=== PATIENT | female | born 1935 | race Caucasian/White ===

== ENCOUNTER 2018-11-22 15:58 | Inpatient (IN) | payer MEDICARE, BC ==
[2018-11-22] MEDS ORDERED: Albuterol Nebulizer 2.5mg/3mL HHN PRN (17:29)
[2018-11-22 17:39] VITALS: BP 131/78
[2018-11-22 17:48] LABS: BASOPHILE ABSOLUTE 0.2 Th/cumm (0-0.2); EOSINOPHILE ABSOLUTE 0.1 Th/cmm (0.1-0.4); HEMATOCRIT 35.6 % (41.0-60); HEMOGLOBIN 11.2 gm/dL (12-16); MEAN CELL VOLUME 84.5 fl (81-100); MEAN CORPUSCULAR HEMOGLOBIN 26.6 pg (27.0-31.0); MEAN CORPUSCULAR HGB CONC 31.4 pg (28.0-36.0); MEAN PLATELET VOLUME 8.3 fl; MONOCYTE ABSOLUTE 1.1 Th/cmm (0.3-1.0); NEUTROPHILE ABSOLUTE 2.9 Th/cmm (1.8-8.0); PLATELET COUNT 195 Th/cmm (150-400); RED BLOOD COUNT 4.21 Mil/cmm (3.80-5.20); RED CELL DISTRIBUTION WIDTH 17.7 % (11.5-20.0); WHITE BLOOD COUNT 5.3 Th/cmm (4.8-10.8)
[2018-11-22 17:58] LABS: % BASOPHILS 2.9 % (0.0-2.0); % EOSINOPHILS 2.1 % (0.0-5.0); % LYMPHOCYTES 18.2 % (20.0-50.0); % NEUTROPHILS 56.8 % (40.0-80.0)
[2018-11-22 18:03] LABS: ALB/GLOB RATIO 1.1 (1.0-1.8); ALBUMIN 3.3 gm/dL (3.7-5.3); ALKALINE PHOSPHATASE 45 U/L (34-104); ANION GAP 14.6 (7.0-16.0); BUN - UREA NITROGEN 49 mg/dL (7-25); CALCIUM SERUM 9.1 mg/dL (8.6-10.3); CARBON DIOXIDE 24.4 mEq/L (21.0-31.0); CHLORIDE 108 mEq/L (98-107); CREATININE - SERUM 1.5 mg/dL (0.6-1.2); GLUCOSE 147 mg/dL (70-105); SGOT 25 U/L (13-39); SGPT/ALT 15 U/L (7-52); SODIUM SERUM 143 mEq/L (136-145); TOTAL PROTEIN,SERUM 6.2 gm/dL (6.0-8.3)
[2018-11-23] MEDS: Acetaminophen 500 MG TAB PO PRN ×2 (02:29→20:55)
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
[2018-11-23 07:23] LABS: ALB/GLOB RATIO 1.1 (1.0-1.8); ALBUMIN 3.1 gm/dL (3.7-5.3); ALKALINE PHOSPHATASE 39 U/L (34-104); ANION GAP 15.1 (7.0-16.0); BILIRUBIN,TOTAL 1.2 mg/dL (0.3-1.0); BUN - UREA NITROGEN 45 mg/dL (7-25); CALCIUM SERUM 8.9 mg/dL (8.6-10.3); CARBON DIOXIDE 24.8 mEq/L (21.0-31.0); CHLORIDE 109 mEq/L (98-107); CHOLESTEROL 72 mg/dL (<200); CREATININE - SERUM 1.4 mg/dL (0.6-1.2); GLUCOSE 101 mg/dL (70-105); HDL -HIGH DENSITY LIPOPROTEIN 32 mg/dL (23-92); POTASSIUM SERUM 3.9 mEq/L (3.5-5.1); SGOT 23 U/L (13-39); SGPT/ALT 13 U/L (7-52); SODIUM SERUM 145 mEq/L (136-145); TOTAL PROTEIN,SERUM 5.9 gm/dL (6.0-8.3); TRIGLYCERIDES 58 mg/dL (<150)
--- NOTE | 2018-11-23 09:17 | Diagnostic Imaging Report ---
Portable chest x-ray HISTORY: Shortness of breath The heart is enlarged. Atherosclerotic calcification seen within the aorta. Cardiac pacemaker lead wires project over the right atrium and right ventricle. No focal pulmonary processes. IMPRESSION: 1. No acute focal pulmonary processes 2. Cardiomegaly with pacemaker placement
[2018-11-23] MEDS: Triamcinolone Acetonide 0.1% Cream 15 gm TP SCH ×2 (10:39→18:06)
[2018-11-23] MEDS: Potassium Chloride 10 mEq ER Tab PO SCH (10:43)
--- NOTE | 2018-11-23 14:57 | History & Physical ---
ADMIT DATE: 11/23/2018 REQUESTING PHYSICIAN: Dr. De La Rosa. REASON FOR CONSULTATION: Psychosis. HISTORY OF PRESENT ILLNESS: This patient is an 83-year-old woman admitted initially to the geropsychiatric unit and the patient is reported to have been having shortness of breath and has been crying constantly and hence the patient has been transferred to the medical unit and is being currently worked up cardiac ross. A psychiatric consultation is called to address the issue of the patient's mood swings. Chart is reviewed. The patient is interviewed. The patient has been placed on the Seroquel, which has been given 25 mg at bedtime for her psychosis and the patient is also on Lexapro 5 mg for the depression. The patient has been able to tolerate the medications. No side effects are noted. During the evaluation, the patient is noted to be resting comfortably. Staff are reporting that the patient has been doing fairly well so far and no major behavioral problems are noted. PAST PSYCHIATRIC HISTORY: Please refer to the above. MENTAL EXAMINATION: The patient is an 83-year-old woman, thin built, superficially cooperative. Eye contact is poor. Mood is depressed. Affect is constricted. The patient has paranoid delusions. Insight and judgment at this time be still impaired. Impulse control seems to be limited. The patient has paranoid delusions, but denies any command hallucinations. No side effects to the medications are noted at this time. 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 PLAN: To continue the patient with the supportive therapy and continue the Seroquel and follow the patient up. [facility]# [id number]
[2018-11-24] MEDS: Acetaminophen 500 MG TAB PO PRN ×2 (03:10→09:01)
[2018-11-24 05:56] LABS: ANION GAP 13.8 (7.0-16.0); BUN - UREA NITROGEN 43 mg/dL (7-25); CALCIUM SERUM 8.8 mg/dL (8.6-10.3); CARBON DIOXIDE 25.1 mEq/L (21.0-31.0); CHLORIDE 110 mEq/L (98-107); CREATININE - SERUM 1.4 mg/dL (0.6-1.2); GLUCOSE 108 mg/dL (70-105); POTASSIUM SERUM 3.9 mEq/L (3.5-5.1); SODIUM SERUM 145 mEq/L (136-145)
--- NOTE | 2018-11-24 08:00 | General Progress Note ---
Subjective - Review of Systems Service Date: 11/24/18 Subjective: Patient is awake, alert, no acute distress. Patient afebrile. Vitals stable. Objective - Results Result Diagrams: 11/22/18 17:40 11/24/18 05:00 Recent Labs: Laboratory Last Values WBC 5.3 Th/cmm (4.8-10.8) 11/22/18 17:40 RBC 4.21 Mil/cmm (3.80-5.20) 11/22/18 17:40 Hgb 11.2 gm/dL (12-16) L 11/22/18 17:40 Hct 35.6 % (41.0-60) L 11/22/18 17:40 MCV 84.5 fl (81-100) 11/22/18 17:40 MCH 26.6 pg (27.0-31.0) L 11/22/18 17:40 MCHC Differential 31.4 pg (28.0-36.0) 11/22/18 17:40 RDW 17.7 % (11.5-20.0) 11/22/18 17:40 Plt Count 195 Th/cmm (150-400) 11/22/18 17:40 MPV 8.3 fl 11/22/18 17:40 Neutrophils % 56.8 % (40.0-80.0) 11/22/18 17:40 Lymphocytes % 18.2 % (20.0-50.0) L 11/22/18 17:40 Monocytes % 20.0 % (2.0-10.0) H 11/22/18 17:40 Eosinophils % 2.1 % (0.0-5.0) 11/22/18 17:40 Basophils % 2.9 % (0.0-2.0) H 11/22/18 17:40 Sodium 145 mEq/L (136-145) 11/24/18 05:00 Potassium 3.9 mEq/L (3.5-5.1) 11/24/18 05:00 Chloride 110 mEq/L (98-107) H 11/24/18 05:00 Carbon Dioxide 25.1 mEq/L (21.0-31.0) 11/24/18 05:00 Anion Gap 13.8 (7.0-16.0) 11/24/18 05:00 BUN 43 mg/dL (7-25) H 11/24/18 05:00 Creatinine 1.4 mg/dL (0.6-1.2) H 11/24/18 05:00 Est GFR ( Amer) TNP 11/24/18 05:00 Est GFR (Non-Af Amer) TNP 11/24/18 05:00 BUN/Creatinine Ratio 30.7 11/24/18 05:00 Glucose 108 mg/dL (70-105) H 11/24/18 05:00 POC Glucose 131 MG/DL (70 - 105) H 11/22/18 16:48 Calcium 8.8 mg/dL (8.6-10.3) 11/24/18 05:00 Total Bilirubin 1.2 mg/dL (0.3-1.0) H 11/23/18 05:58 AST 23 U/L (13-39) 11/23/18 05:58 ALT 13 U/L (7-52) 11/23/18 05:58 Alkaline Phosphatase 39 U/L (34-104) 11/23/18 05:58 Troponin I 0.03 ng/mL (0.01-0.05) 11/22/18 17:40 B-Natriuretic Peptide 906.0 pg/mL (5.0-100.0) H 11/24/18 05:00 Total Protein 5.9 gm/dL (6.0-8.3) L 11/23/18 05:58 Albumin 3.1 gm/dL (3.7-5.3) L 11/23/18 05:58 Globulin 2.8 gm/dL 11/23/18 05:58 Albumin/Globulin Ratio 1.1 (1.0-1.8) 11/23/18 05:58 Triglycerides 58 mg/dL (<150) 11/23/18 05:58 Cholesterol 72 mg/dL (<200) 11/23/18 05:58 LDL Cholesterol Direct 38 mg/dL (75-193) L 11/23/18 05:58 HDL Cholesterol 32 mg/dL (23-92) 11/23/18 05:58 TSH 0.54 uIU/ml (0.34-5.60) 11/23/18 05:58 - Physical Exam Vitals and I&O: Vital Signs Temp 97 F 11/24/18 04:00 Pulse 87 11/24/18 04:00 Resp 18 11/24/18 04:00 BP 101/54 11/24/18 04:00 Pulse Ox 98 11/24/18 04:00 Intake & Output 11/23/18 11/24/18 11/24/18 18:59 06:59 18:59 Intake Total 500 200 Balance 500 200 Weight (lbs) 67.132 kg 67.132 kg Intake: Oral 500 200 Other: # Voids 2 2 # Bowel Movements 0 1 Weight Source Bedscale Bedscale Active Medications: Current Medications Acetaminophen (Tylenol Extra Strength) 500 mg PO Q6H PRN PRN Reason: Pain or Fever >101 Stop: 01/21/19 18:23 Last Admin: 11/24/18 03:10 Dose: 500 mg Albuterol Sulfate (Albuterol 2.5mg/3ml Neb Ud) 2.5 mg HHN Q4H PRN PRN Reason: sob Stop: 01/21/19 17:28 Atenolol (Tenormin) 50 mg PO DAILY [facility] Stop: 01/22/19 08:59 Last Admin: 11/23/18 08:09 Dose: Not Given Furosemide (Lasix) 40 mg PO DAILY [facility] Stop: 01/22/19 08:59 Last Admin: 11/23/18 16:31 Dose: Not Given Heparin Sodium (Porcine) (Heparin) 5,000 units SUBQ Q12HR [facility] Stop: 01/22/19 08:59 Last Admin: 11/23/18 20:55 Dose: 5,000 units Latanoprost (Xalatan 0.005% Oph Soln) 1 drop EACH EYE HS [facility]IT Stop: 01/21/19 20:59 Last Admin: 11/23/18 22:00 Dose: 1 drop Lorazepam (Ativan) 0.5 mg PO Q4HR PRN; Protocol PRN Reason: Agitation Stop: 01/21/19 17:25 Last Admin: 11/24/18 03:26 Dose: 0.5 mg Lorazepam (Ativan) 0.5 mg PO Q4HR PRN; Protocol PRN Reason: Anxiety Stop: 01/21/19 18:23 Last Admin: 11/22/18 20:22 Dose: 0.5 mg Potassium Chloride (Klor-Con) 10 meq PO DAILY [facility] Stop: 01/22/19 08:59 Last Admin: 11/23/18 10:43 Dose: Not Given Quetiapine Fumarate (Seroquel) 25 mg PO HS SUMIT; Protocol Stop: 01/21/19 20:59 Last Admin: 11/23/18 20:55 Dose: 25 mg Timolol Maleate (Timoptic 0.5% Ophth Soln) 1 drop EACH EYE BID [facility] Stop: 01/22/19 08:59 Last Admin: 11/23/18 18:06 Dose: Not Given Triamcinolone Acetonide (Kenalog 0.1%) 1 appl TP BID [facility] Stop: 01/22/19 08:59 Last Admin: 11/23/18 18:06 Dose: Not Given Zolpidem Tartrate (Ambien) 5 mg PO HS PRN PRN Reason: Insomnia Stop: 01/21/19 18:23 Last Admin: 11/22/18 23:45 Dose: 5 mg General: Alert, Oriented x3, No acute distress HEENT: Atraumatic, PERRLA, EOMI Neck: Supple Cardiovascular: Regular rate, Normal S1, Normal S2 Abdomen: Bowel sounds, Soft Extremities: Edema, no Clubbing, no Cyanosis Assessment/Plan - Assessment Assessment: SOB CHF CRF HTN Dementia Psychosis elevated BNP Lower extremity edema - Plan Plan: cardiology consult Lasix PO continue home meds CBC,CMP,TSH tomorrow CXR ECHO pending
--- NOTE | 2018-11-24 08:01 | Diagnostic Imaging Report ---
Bilateral lower extremity Doppler venous ultrasound exam HISTORY: Pain/swelling Sonographic sector images were obtained through the deep venous systems of both legs. Associated Doppler data was obtained. The exam demonstrates patency of the common femoral, superficial femoral, popliteal, and posterior tibial veins bilaterally. Specifically, no thrombus is seen. There are normal compressibility and augmentation responses. IMPRESSION: Negative exam for deep vein thrombophlebitis.
[2018-11-24] MEDS: Triamcinolone Acetonide 0.1% Cream 15 gm TP SCH ×2 (09:19→17:38)
[2018-11-24] MEDS: Potassium Chloride 10 mEq ER Tab PO SCH (12:24)
--- NOTE | 2018-11-25 08:08 | General Progress Note ---
Subjective - Review of Systems Service Date: 11/25/18 Subjective: Patient is awake, alert, no acute distress. Patient afebrile. Vitals stable. on O2 NC Objective - Results Result Diagrams: 11/22/18 17:40 11/24/18 05:00 Recent Labs: Laboratory Last Values WBC 5.3 Th/cmm (4.8-10.8) 11/22/18 17:40 RBC 4.21 Mil/cmm (3.80-5.20) 11/22/18 17:40 Hgb 11.2 gm/dL (12-16) L 11/22/18 17:40 Hct 35.6 % (41.0-60) L 11/22/18 17:40 MCV 84.5 fl (81-100) 11/22/18 17:40 MCH 26.6 pg (27.0-31.0) L 11/22/18 17:40 MCHC Differential 31.4 pg (28.0-36.0) 11/22/18 17:40 RDW 17.7 % (11.5-20.0) 11/22/18 17:40 Plt Count 195 Th/cmm (150-400) 11/22/18 17:40 MPV 8.3 fl 11/22/18 17:40 Neutrophils % 56.8 % (40.0-80.0) 11/22/18 17:40 Lymphocytes % 18.2 % (20.0-50.0) L 11/22/18 17:40 Monocytes % 20.0 % (2.0-10.0) H 11/22/18 17:40 Eosinophils % 2.1 % (0.0-5.0) 11/22/18 17:40 Basophils % 2.9 % (0.0-2.0) H 11/22/18 17:40 Sodium 145 mEq/L (136-145) 11/24/18 05:00 Potassium 3.9 mEq/L (3.5-5.1) 11/24/18 05:00 Chloride 110 mEq/L (98-107) H 11/24/18 05:00 Carbon Dioxide 25.1 mEq/L (21.0-31.0) 11/24/18 05:00 Anion Gap 13.8 (7.0-16.0) 11/24/18 05:00 BUN 43 mg/dL (7-25) H 11/24/18 05:00 Creatinine 1.4 mg/dL (0.6-1.2) H 11/24/18 05:00 Est GFR ( Amer) TNP 11/24/18 05:00 Est GFR (Non-Af Amer) TNP 11/24/18 05:00 BUN/Creatinine Ratio 30.7 11/24/18 05:00 Glucose 108 mg/dL (70-105) H 11/24/18 05:00 POC Glucose 131 MG/DL (70 - 105) H 11/22/18 16:48 Calcium 8.8 mg/dL (8.6-10.3) 11/24/18 05:00 Total Bilirubin 1.2 mg/dL (0.3-1.0) H 11/23/18 05:58 AST 23 U/L (13-39) 11/23/18 05:58 ALT 13 U/L (7-52) 11/23/18 05:58 Alkaline Phosphatase 39 U/L (34-104) 11/23/18 05:58 Troponin I 0.03 ng/mL (0.01-0.05) 11/22/18 17:40 B-Natriuretic Peptide 906.0 pg/mL (5.0-100.0) H 11/24/18 05:00 Total Protein 5.9 gm/dL (6.0-8.3) L 11/23/18 05:58 Albumin 3.1 gm/dL (3.7-5.3) L 11/23/18 05:58 Globulin 2.8 gm/dL 11/23/18 05:58 Albumin/Globulin Ratio 1.1 (1.0-1.8) 11/23/18 05:58 Triglycerides 58 mg/dL (<150) 11/23/18 05:58 Cholesterol 72 mg/dL (<200) 11/23/18 05:58 LDL Cholesterol Direct 38 mg/dL (75-193) L 11/23/18 05:58 HDL Cholesterol 32 mg/dL (23-92) 11/23/18 05:58 TSH 0.54 uIU/ml (0.34-5.60) 11/23/18 05:58 - Physical Exam Vitals and I&O: Vital Signs Temp 98 F 11/25/18 04:00 Pulse 83 11/25/18 05:58 Resp 16 11/25/18 05:58 BP 127/76 11/25/18 04:00 Pulse Ox 97 11/25/18 05:58 Intake & Output 11/24/18 11/25/18 11/25/18 18:59 06:59 18:59 Intake Total 240 Balance 240 Weight (lbs) 73.663 kg Intake: Oral 240 Other: # Voids 2 # Bowel Movements 1 Weight Source Bedscale Active Medications: Current Medications Acetaminophen (Tylenol Extra Strength) 500 mg PO Q6H PRN PRN Reason: Pain or Fever >101 Stop: 01/21/19 18:23 Last Admin: 11/24/18 09:01 Dose: 500 mg Albuterol Sulfate (Albuterol 2.5mg/3ml Neb Ud) 2.5 mg HHN Q4H PRN PRN Reason: sob Stop: 01/21/19 17:28 Atenolol (Tenormin) 50 mg PO DAILY [facility] Stop: 01/22/19 08:59 Last Admin: 11/24/18 09:23 Dose: 50 mg Furosemide (Lasix) 40 mg PO DAILY [facility] Stop: 01/22/19 08:59 Last Admin: 11/24/18 09:00 Dose: Not Given Heparin Sodium (Porcine) (Heparin) 5,000 units SUBQ Q12HR [facility] Stop: 01/22/19 08:59 Last Admin: 11/24/18 20:27 Dose: 5,000 units Latanoprost (Xalatan 0.005% Ophth Soln) 1 drop EACH EYE HS [facility] Stop: 01/21/19 20:59 Last Admin: 11/24/18 20:36 Dose: Not Given Lorazepam (Ativan) 0.5 mg PO Q4HR PRN; Protocol PRN Reason: Agitation Stop: 01/21/19 17:25 Last Admin: 11/24/18 08:54 Dose: 0.5 mg Lorazepam (Ativan) 0.5 mg PO Q4HR PRN; Protocol PRN Reason: Anxiety Stop: 01/21/19 18:23 Last Admin: 11/22/18 20:22 Dose: 0.5 mg Lorazepam (Ativan) 1 mg IVP Q8HR PRN; Protocol PRN Reason: Agitation Stop: 01/23/19 19:17 Last Admin: 11/24/18 23:01 Dose: 1 mg Potassium Chloride (Klor-Con) 10 meq PO DAILY [facility] Stop: 01/22/19 08:59 Last Admin: 11/24/18 12:24 Dose: Not Given Quetiapine Fumarate (Seroquel) 25 mg PO HS SUMIT; Protocol Stop: 01/21/19 20:59 Last Admin: 11/24/18 20:28 Dose: 25 mg Timolol Maleate (Timoptic 0.5% Ophth Soln) 1 drop EACH EYE BID [facility] Stop: 01/22/19 08:59 Last Admin: 11/24/18 17:38 Dose: Not Given Triamcinolone Acetonide (Kenalog 0.1%) 1 appl TP BID [facility] Stop: 01/22/19 08:59 Last Admin: 11/24/18 17:38 Dose: Not Given Zolpidem Tartrate (Ambien) 5 mg PO HS PRN PRN Reason: Insomnia Stop: 01/21/19 18:23 Last Admin: 11/24/18 23:05 Dose: 5 mg General: Alert, Oriented x3, No acute distress HEENT: Atraumatic, PERRLA, EOMI Neck: Supple Cardiovascular: Regular rate, Normal S1, Normal S2 Abdomen: Bowel sounds, Soft Extremities: Edema, no Clubbing, no Cyanosis Assessment/Plan - Assessment Assessment: SOB CHF CRF HTN Dementia Psychosis elevated BNP Lower extremity edema - Plan Plan: cardiology consult Lasix PO continue home meds CBC,CMP,TSH tomorrow CXR ECHO pending
[2018-11-25] MEDS: Triamcinolone Acetonide 0.1% Cream 15 gm TP SCH ×3 (08:23→16:14)
[2018-11-25] MEDS: Potassium Chloride 10 mEq ER Tab PO SCH ×2 (08:26→09:12)
[2018-11-25 08:56] LABS: ALB/GLOB RATIO 1.2 (1.0-1.8); ALBUMIN 3.1 gm/dL (3.7-5.3); ALKALINE PHOSPHATASE 46 U/L (34-104); ANION GAP 13.9 (7.0-16.0); BILIRUBIN,TOTAL 1.3 mg/dL (0.3-1.0); BUN - UREA NITROGEN 39 mg/dL (7-25); CALCIUM SERUM 8.9 mg/dL (8.6-10.3); CARBON DIOXIDE 26.1 mEq/L (21.0-31.0); CHLORIDE 107 mEq/L (98-107); CREATININE - SERUM 1.3 mg/dL (0.6-1.2); GLUCOSE 88 mg/dL (70-105); SGOT 27 U/L (13-39); SGPT/ALT 14 U/L (7-52); SODIUM SERUM 143 mEq/L (136-145); TOTAL PROTEIN,SERUM 5.8 gm/dL (6.0-8.3)
[2018-11-25 12:58] LABS: ALLEN TEST PASS; pH 7.48 (7.35-7.45)
--- NOTE | 2018-11-25 15:05 | Consultation ---
DATE OF CONSULTATION: 11/25/2018 PULMONARY/CRITICAL CARE CONSULTATION NOTE REASON FOR CONSULTATION: Hypoxemia. HISTORY OF PRESENT ILLNESS: This is an 83-year-old female basically was admitted here because of possibly pneumonia and/or congestive heart failure. Subsequently, the patient was admitted and as the patient was found to have elevated BNP and the patient was given appropriate treatment, but as the patient is moaning was hypoxemic. I was asked to see this patient for further care and necessary treatment. Unfortunately, the patient is quite obtunded. I was told the patient was given Ativan p.o. couple of hours back, meaningful detailed history from the patient is not available. PAST MEDICAL HISTORY: History of hypertension, CKD 3, progressive dementia, insomnia as well as possibly psychosis. Other history is very minimal to nil. PHYSICAL EXAMINATION: GENERAL: This is an elderly looking female, barely arousable, no respiratory distress, etc. PHYSICAL EXAMINATION: VITAL SIGNS: Temperature is 97.5, blood pressure 107/65. NECK: Veins not visualized. CHEST: Shows diminished air entry with occasional rales. HEART: Distant, regular, otherwise unremarkable. ABDOMEN: Soft, nontender. EXTREMITIES: Shows poor pulsations with slight trace of peripheral edema. The patient has a significant ecchymotic looks like old and upper extremity has upper anterior wall of the chest. LABORATORY DATA: The patient's recent laboratory studies WBC is 5.3, hemoglobin 11.2 and patient's ABG today on 36% of oxygen, pO2 is 129 and electrolytes are okay with creatinine 3.39, the patient's creatinine 1.9, BUN is 37 with a total bilirubin 138 and BNP is 1880. IMPRESSION: 1. The patient's shortness of breath is multifactorial. 2. Possibly early congestive heart failure. 3. Sedation with suspect underlying sleep apnea syndrome contributory factor. PLANS AND SUGGESTIONS: We will repeat the chest x-ray again today. We will give aggressive respiratory care p.r.n. BiPAP. We will hold sedation for now and we will see how she does the next 24-48 hours and go from there. JOB# [id number]
[2018-11-25] MEDS: Budesonide 0.5 Mg/2 mL Ud HHN SCH (19:09)
[2018-11-25] MEDS: Albuterol/Ipratropium Neb 3 ML AERS HHN SCH (19:09)
--- NOTE | 2018-11-26 00:51 | Progress Notes ---
DATE: 11/24/2018 REFERRING PHYSICIAN: Dr. De La Rosa and Dr. Resendez. SUBJECTIVE: The patient is being followed up by this copy writer. This copy writer initially evaluated the patient on the geropsychiatric unit. The patient was reported to having SOB and crying constantly and was transferred to the medical unit for a cardiac workup. The patient appears to be experiencing mood swings and reports that she is severely depressed. Staff reports the patient has been compliant with her treatment thus far. OBJECTIVE: Mood labile and depressed. Affect labile and tearful. Thought process depressogenic. The patient denied any auditory or visual hallucinations. It is noted there is possible, paranoid ideation. The patient's behavior has been compliant with care. ASSESSMENT AND PLAN: Psychotic disorder, not otherwise specified; dementia with behavioral disturbance. We continued the supportive psychotherapy. We provided reality orientation, differentiation and integration. We provided motivational enhancement for the patient to stay compliant with all aspects of her care and treatment. We provided coping strategies for phase of life issues. This provider will follow up in 2-3 days, contingent upon the patient's continued admission. This provider will consult with Dr. eD La Rosa and Dr. Resendez with respect to the continuity of care for psychology services while on the medical floor. JOB# [id number] ARIELLE
[2018-11-26 06:51] LABS: HEMATOCRIT 34.5 % (41.0-60); HEMOGLOBIN 11.2 gm/dL (12-16); MEAN CELL VOLUME 86.3 fl (81-100); MEAN CORPUSCULAR HGB CONC 32.5 pg (28.0-36.0); MEAN PLATELET VOLUME 8.7 fl; PLATELET COUNT 185 Th/cmm (150-400); RED CELL DISTRIBUTION WIDTH 17.5 % (11.5-20.0); WHITE BLOOD COUNT 6.3 Th/cmm (4.8-10.8)
[2018-11-26 06:57] LABS: INR 1.25 (0.5-1.4); PROTHROMBIN TIME (TEST) 12.9 SECONDS (9.5-11.5)
[2018-11-26 07:09] LABS: ALB/GLOB RATIO 1.1 (1.0-1.8); ALBUMIN 3.2 gm/dL (3.7-5.3); BILIRUBIN,DIRECT 0.6 mg/dL (0.0-0.2); BILIRUBIN,TOTAL 1.4 mg/dL (0.3-1.0)
[2018-11-26 07:10] LABS: BAND NEUTROPHILE 0 % (0-10); BASOPHIL 0 % (0-3); EOSINOPHIL 0 % (0-5); LYMPHOCYTE 13 % (20-50); MONOCYTE 15 % (2-10); NEUTROPHILS 72 % (40-80)
[2018-11-26] MEDS: Budesonide 0.5 Mg/2 mL Ud HHN SCH ×2 (07:14→19:52)
[2018-11-26] MEDS: Albuterol/Ipratropium Neb 3 ML AERS HHN SCH ×3 (07:14→19:40)
--- NOTE | 2018-11-26 08:21 | General Progress Note ---
Subjective - Review of Systems Service Date: 11/26/18 Subjective: Patient is awake, alert, but confused. poor PO intake. Patient afebrile. Vitals stable. on O2 NC Objective - Results Result Diagrams: 11/26/18 05:50 11/25/18 08:22 Recent Labs: Laboratory Last Values WBC 6.3 Th/cmm (4.8-10.8) 11/26/18 05:50 RBC 4.00 Mil/cmm (3.80-5.20) 11/26/18 05:50 Hgb 11.2 gm/dL (12-16) L 11/26/18 05:50 Hct 34.5 % (41.0-60) L 11/26/18 05:50 MCV 86.3 fl (81-100) 11/26/18 05:50 MCH 28.0 pg (27.0-31.0) 11/26/18 05:50 MCHC Differential 32.5 pg (28.0-36.0) 11/26/18 05:50 RDW 17.5 % (11.5-20.0) 11/26/18 05:50 Plt Count 185 Th/cmm (150-400) 11/26/18 05:50 MPV 8.7 fl 11/26/18 05:50 Add Manual Diff YES 11/26/18 05:50 Neutrophils % 56.8 % (40.0-80.0) 11/22/18 17:40 Band Neutrophils % 0 % (0-10) 11/26/18 05:50 Lymphocytes % 18.2 % (20.0-50.0) L 11/22/18 17:40 Monocytes % 20.0 % (2.0-10.0) H 11/22/18 17:40 Eosinophils % 2.1 % (0.0-5.0) 11/22/18 17:40 Basophils % 2.9 % (0.0-2.0) H 11/22/18 17:40 Neutrophils (Manual) 72 % (40-80) 11/26/18 05:50 Lymphocytes 13 % (20-50) L 11/26/18 05:50 Monocytes 15 % (2-10) H 11/26/18 05:50 Eosinophils 0 % (0-5) 11/26/18 05:50 Basophils 0 % (0-3) 11/26/18 05:50 PT 12.9 SECONDS (9.5-11.5) H 11/26/18 05:50 INR 1.25 (0.5-1.4) 11/26/18 05:50 PTT (Actin FS) 30.2 SECONDS (26.0-38.0) 11/26/18 05:50 Specimen Source Arterial 11/25/18 12:35 Sample Site Right Radial 11/25/18 12:35 pH 7.48 (7.35-7.45) H 11/25/18 12:35 pCO2 35.0 mmHg (35.0-45.0) 11/25/18 12:35 pO2 129.0 mmHg (80.0-100.0) H 11/25/18 12:35 HCO3 27.2 mEq/L (20.0-26.0) H 11/25/18 12:35 Base Excess 2.8 mEq/L (-3.0-3.0) 11/25/18 12:35 O2 Saturation 99.0 % (92.0-100.0) 11/25/18 12:35 Pedrito Test PASS 11/25/18 12:35 Inspired O2 36 11/25/18 12:35 Critical Value PW 11/25/18 12:35 Sodium 143 mEq/L (136-145) 11/25/18 08:22 Potassium 4.0 mEq/L (3.5-5.1) 11/25/18 08:22 Chloride 107 mEq/L (98-107) 11/25/18 08:22 Carbon Dioxide 26.1 mEq/L (21.0-31.0) 11/25/18 08:22 Anion Gap 13.9 (7.0-16.0) 11/25/18 08:22 BUN 39 mg/dL (7-25) H 11/25/18 08:22 Creatinine 1.3 mg/dL (0.6-1.2) H 11/25/18 08:22 Est GFR ( Amer) TNP 11/25/18 08:22 Est GFR (Non-Af Amer) TNP 11/25/18 08:22 BUN/Creatinine Ratio 30.0 11/25/18 08:22 Glucose 88 mg/dL (70-105) 11/25/18 08:22 POC Glucose 131 MG/DL (70 - 105) H 11/22/18 16:48 Calcium 8.9 mg/dL (8.6-10.3) 11/25/18 08:22 Total Bilirubin 1.4 mg/dL (0.3-1.0) H 11/26/18 05:50 Direct Bilirubin 0.60 mg/dL (0.0-0.2) H 11/26/18 05:50 AST 29 U/L (13-39) 11/26/18 05:50 ALT 15 U/L (7-52) 11/26/18 05:50 Alkaline Phosphatase 46 U/L (34-104) 11/26/18 05:50 Troponin I 0.03 ng/mL (0.01-0.05) 11/22/18 17:40 B-Natriuretic Peptide 1880.0 pg/mL (5.0-100.0) H 11/25/18 08:22 Total Protein 6.0 gm/dL (6.0-8.3) 11/26/18 05:50 Albumin 3.2 gm/dL (3.7-5.3) L 11/26/18 05:50 Globulin 2.8 gm/dL 11/26/18 05:50 Albumin/Globulin Ratio 1.1 (1.0-1.8) 11/26/18 05:50 Triglycerides 58 mg/dL (<150) 11/23/18 05:58 Cholesterol 72 mg/dL (<200) 11/23/18 05:58 LDL Cholesterol Direct 38 mg/dL (75-193) L 11/23/18 05:58 HDL Cholesterol 32 mg/dL (23-92) 11/23/18 05:58 TSH 0.54 uIU/ml (0.34-5.60) 11/23/18 05:58 - Physical Exam Vitals and I&O: Vital Signs Temp 98.8 F 11/26/18 04:00 Pulse 99 11/26/18 07:14 Resp 20 11/26/18 07:14 BP 134/90 11/26/18 04:00 Pulse Ox 97 11/26/18 07:14 Intake & Output 11/25/18 11/26/18 11/26/18 18:59 06:59 18:59 Intake Total 100 200 Balance 100 200 Weight (lbs) 72.484 kg 72.121 kg Intake: Oral 100 200 Other: # Voids 2 3 # Bowel Movements 1 Weight Source Bedscale Bedscale Active Medications: Current Medications Acetaminophen (Tylenol Extra Strength) 500 mg PO Q6H PRN PRN Reason: Pain or Fever >101 Stop: 01/21/19 18:23 Last Admin: 11/24/18 09:01 Dose: 500 mg Albuterol Sulfate (Albuterol 2.5mg/3ml Neb Ud) 2.5 mg HHN Q4H PRN PRN Reason: sob Stop: 01/21/19 17:28 Albuterol/Ipratropium (Duoneb Neb) 3 ml HHN [id number] [facility] Stop: 01/24/19 18:59 Last Admin: 11/26/18 07:14 Dose: Not Given Atenolol (Tenormin) 50 mg PO DAILY [facility] Stop: 01/22/19 08:59 Last Admin: 11/25/18 09:11 Dose: Not Given Budesonide (Pulmicort) 0.5 mg HHN BIDRT [facility] Stop: 01/24/19 18:59 Last Admin: 11/26/18 07:14 Dose: Not Given Furosemide (Lasix) 40 mg PO DAILY [facility] Stop: 01/22/19 08:59 Last Admin: 11/25/18 09:11 Dose: Not Given Furosemide (Lasix) 40 mg IVP BID [facility] Stop: 01/24/19 16:59 Last Admin: 11/25/18 16:16 Dose: 40 mg Heparin Sodium (Porcine) (Heparin) 5,000 units SUBQ Q12HR [facility] Stop: 01/22/19 08:59 Last Admin: 11/25/18 21:32 Dose: 5,000 units Latanoprost (Xalatan 0.005% Ophth Soln) 1 drop EACH EYE HS [facility] Stop: 01/21/19 20:59 Last Admin: 11/25/18 20:36 Dose: Not Given Lorazepam (Ativan) 0.5 mg PO Q4HR PRN; Protocol PRN Reason: Agitation Stop: 01/21/19 17:25 Last Admin: 11/25/18 22:09 Dose: 0.5 mg Lorazepam (Ativan) 0.5 mg PO Q4HR PRN; Protocol PRN Reason: Anxiety Stop: 01/21/19 18:23 Last Admin: 11/22/18 20:22 Dose: 0.5 mg Potassium Chloride (Klor-Con) 10 meq PO DAILY [facility] Stop: 01/22/19 08:59 Last Admin: 11/25/18 09:12 Dose: Not Given Quetiapine Fumarate (Seroquel) 25 mg PO HS [facility]; Protocol Stop: 01/21/19 20:59 Last Admin: 11/25/18 20:13 Dose: 25 mg Timolol Maleate (Timoptic 0.5% Oph Soln) 1 drop EACH EYE BID [facility] Stop: 01/22/19 08:59 Last Admin: 11/25/18 16:14 Dose: Not Given Triamcinolone Acetonide (Kenalog 0.1%) 1 appl TP BID [facility] Stop: 01/22/19 08:59 Last Admin: 11/25/18 16:14 Dose: Not Given General: Alert, Oriented x3, No acute distress HEENT: Atraumatic, PERRLA, EOMI Neck: Supple Cardiovascular: Regular rate, Normal S1, Normal S2 Abdomen: Bowel sounds, Soft Extremities: Edema, no Clubbing, no Cyanosis Assessment/Plan - Assessment Assessment: SOB CHF CRF HTN Dementia Psychosis elevated BNP Lower extremity edema poor PO intake - Plan Plan: cardiology consult Lasix PO continue home meds CBC,CMP,TSH tomorrow CXR ECHO pending swallow eval GI consult
--- NOTE | 2018-11-26 08:30 | Diagnostic Imaging Report ---
CHEST X-RAY: AP view INDICATION: Shortness of breath COMPARISON: 11/22/2018 FINDINGS: Left chest wall pacemaker is stable. No focal consolidation or effusions. Chronic lung changes are noted. Cardiomegaly is noted with atherosclerosis. Degenerative changes of the spine are noted. IMPRESSION: Chronic lung changes with no focal consolidation identified. Cardiomegaly and atherosclerotic vascular disease. Stable pacemaker.
[2018-11-26] MEDS: Potassium Chloride 10 mEq ER Tab PO SCH (08:51)
[2018-11-26] MEDS: Triamcinolone Acetonide 0.1% Cream 15 gm TP SCH ×2 (08:52→18:10)
--- NOTE | 2018-11-26 08:58 | Diagnostic Imaging Report ---
CHEST X-RAY: AP view INDICATION: Shortness of breath COMPARISON: 11/25/2018 FINDINGS: Left chest wall pacemaker is stable. Mild increased interstitial lung markings are noted. No focal consolidation or effusions. Cardiomegaly is noted with atherosclerosis. IMPRESSION: Mild increased interstitial lung markings probably chronic. A marginal degree of congestion is considered less likely. Please correlate clinically. No focal consolidation identified. Cardiomegaly and atherosclerotic vascular disease. Pacemaker.
--- NOTE | 2018-11-26 14:15 | General Progress Note ---
Subjective - Review of Systems Service Date: 11/26/18 Subjective: Patient has S shortness of breath and less swelling in the legs Objective - Results Result Diagrams: 11/26/18 05:50 11/25/18 08:22 Recent Labs: Laboratory Last Values WBC 6.3 Th/cmm (4.8-10.8) 11/26/18 05:50 RBC 4.00 Mil/cmm (3.80-5.20) 11/26/18 05:50 Hgb 11.2 gm/dL (12-16) L 11/26/18 05:50 Hct 34.5 % (41.0-60) L 11/26/18 05:50 MCV 86.3 fl (81-100) 11/26/18 05:50 MCH 28.0 pg (27.0-31.0) 11/26/18 05:50 MCHC Differential 32.5 pg (28.0-36.0) 11/26/18 05:50 RDW 17.5 % (11.5-20.0) 11/26/18 05:50 Plt Count 185 Th/cmm (150-400) 11/26/18 05:50 MPV 8.7 fl 11/26/18 05:50 Add Manual Diff YES 11/26/18 05:50 Neutrophils % 56.8 % (40.0-80.0) 11/22/18 17:40 Band Neutrophils % 0 % (0-10) 11/26/18 05:50 Lymphocytes % 18.2 % (20.0-50.0) L 11/22/18 17:40 Monocytes % 20.0 % (2.0-10.0) H 11/22/18 17:40 Eosinophils % 2.1 % (0.0-5.0) 11/22/18 17:40 Basophils % 2.9 % (0.0-2.0) H 11/22/18 17:40 Neutrophils (Manual) 72 % (40-80) 11/26/18 05:50 Lymphocytes 13 % (20-50) L 11/26/18 05:50 Monocytes 15 % (2-10) H 11/26/18 05:50 Eosinophils 0 % (0-5) 11/26/18 05:50 Basophils 0 % (0-3) 11/26/18 05:50 PT 12.9 SECONDS (9.5-11.5) H 11/26/18 05:50 INR 1.25 (0.5-1.4) 11/26/18 05:50 PTT (Actin FS) 30.2 SECONDS (26.0-38.0) 11/26/18 05:50 Specimen Source Arterial 11/25/18 12:35 Sample Site Right Radial 11/25/18 12:35 pH 7.48 (7.35-7.45) H 11/25/18 12:35 pCO2 35.0 mmHg (35.0-45.0) 11/25/18 12:35 pO2 129.0 mmHg (80.0-100.0) H 11/25/18 12:35 HCO3 27.2 mEq/L (20.0-26.0) H 11/25/18 12:35 Base Excess 2.8 mEq/L (-3.0-3.0) 11/25/18 12:35 O2 Saturation 99.0 % (92.0-100.0) 11/25/18 12:35 Pedrito Test PASS 11/25/18 12:35 Inspired O2 36 11/25/18 12:35 Critical Value PW 11/25/18 12:35 Sodium 143 mEq/L (136-145) 11/25/18 08:22 Potassium 4.0 mEq/L (3.5-5.1) 11/25/18 08:22 Chloride 107 mEq/L (98-107) 11/25/18 08:22 Carbon Dioxide 26.1 mEq/L (21.0-31.0) 11/25/18 08:22 Anion Gap 13.9 (7.0-16.0) 11/25/18 08:22 BUN 39 mg/dL (7-25) H 11/25/18 08:22 Creatinine 1.3 mg/dL (0.6-1.2) H 11/25/18 08:22 Est GFR ( Amer) TNP 11/25/18 08:22 Est GFR (Non-Af Amer) TNP 11/25/18 08:22 BUN/Creatinine Ratio 30.0 11/25/18 08:22 Glucose 88 mg/dL (70-105) 11/25/18 08:22 POC Glucose 131 MG/DL (70 - 105) H 11/22/18 16:48 Calcium 8.9 mg/dL (8.6-10.3) 11/25/18 08:22 Total Bilirubin 1.4 mg/dL (0.3-1.0) H 11/26/18 05:50 Direct Bilirubin 0.60 mg/dL (0.0-0.2) H 11/26/18 05:50 AST 29 U/L (13-39) 11/26/18 05:50 ALT 15 U/L (7-52) 11/26/18 05:50 Alkaline Phosphatase 46 U/L (34-104) 11/26/18 05:50 Troponin I 0.03 ng/mL (0.01-0.05) 11/22/18 17:40 B-Natriuretic Peptide 1880.0 pg/mL (5.0-100.0) H 11/25/18 08:22 Total Protein 6.0 gm/dL (6.0-8.3) 11/26/18 05:50 Albumin 3.2 gm/dL (3.7-5.3) L 11/26/18 05:50 Globulin 2.8 gm/dL 11/26/18 05:50 Albumin/Globulin Ratio 1.1 (1.0-1.8) 11/26/18 05:50 Triglycerides 58 mg/dL (<150) 11/23/18 05:58 Cholesterol 72 mg/dL (<200) 11/23/18 05:58 LDL Cholesterol Direct 38 mg/dL (75-193) L 11/23/18 05:58 HDL Cholesterol 32 mg/dL (23-92) 11/23/18 05:58 TSH 0.54 uIU/ml (0.34-5.60) 11/23/18 05:58 - Physical Exam Vitals and I&O: Vital Signs Temp 97.3 F 11/26/18 11:37 Pulse 65 11/26/18 11:37 Resp 18 11/26/18 11:37 BP 147/85 11/26/18 11:37 Pulse Ox 93 11/26/18 11:37 Intake & Output 11/25/18 11/26/18 11/26/18 18:59 06:59 18:59 Intake Total 100 200 Balance 100 200 Weight (lbs) 72.484 kg 72.121 kg Intake: Oral 100 200 Other: # Voids 2 3 # Bowel Movements 1 Weight Source Bedscale Bedscale Active Medications: Current Medications Acetaminophen (Tylenol Extra Strength) 500 mg PO Q6H PRN PRN Reason: Pain or Fever >101 Stop: 01/21/19 18:23 Last Admin: 11/24/18 09:01 Dose: 500 mg Albuterol Sulfate (Albuterol 2.5mg/3ml Neb Ud) 2.5 mg HHN Q4H PRN PRN Reason: sob Stop: 01/21/19 17:28 Albuterol/Ipratropium (Duoneb Neb) 3 ml HHN [id number] [facility] Stop: 01/24/19 18:59 Last Admin: 11/26/18 07:14 Dose: Not Given Atenolol (Tenormin) 50 mg PO DAILY [facility] Stop: 01/22/19 08:59 Last Admin: 11/26/18 08:51 Dose: Not Given Budesonide (Pulmicort) 0.5 mg HHN BIDRT [facility] Stop: 01/24/19 18:59 Last Admin: 11/26/18 07:14 Dose: Not Given Furosemide (Lasix) 40 mg PO DAILY [facility] Stop: 01/22/19 08:59 Last Admin: 11/26/18 08:51 Dose: Not Given Furosemide (Lasix) 40 mg IVP BID [facility] Stop: 01/24/19 16:59 Last Admin: 11/26/18 08:42 Dose: 40 mg Heparin Sodium (Porcine) (Heparin) 5,000 units SUBQ Q12HR [facility] Stop: 01/22/19 08:59 Last Admin: 11/26/18 08:43 Dose: 5,000 units Latanoprost (Xalatan 0.005% [facility] Sol) 1 drop EACH EYE HS [facility] Stop: 01/21/19 20:59 Last Admin: 11/25/18 20:36 Dose: Not Given Lorazepam (Ativan) 0.5 mg PO Q4HR PRN; Protocol PRN Reason: Agitation Stop: 01/21/19 17:25 Last Admin: 11/25/18 22:09 Dose: 0.5 mg Lorazepam (Ativan) 0.5 mg PO Q4HR PRN; Protocol PRN Reason: Anxiety Stop: 01/21/19 18:23 Last Admin: 11/22/18 20:22 Dose: 0.5 mg Potassium Chloride (Klor-Con) 10 meq PO DAILY [facility] Stop: 01/22/19 08:59 Last Admin: 11/26/18 08:51 Dose: Not Given Quetiapine Fumarate (Seroquel) 25 mg PO HS [facility]; Protocol Stop: 01/21/19 20:59 Last Admin: 11/25/18 20:13 Dose: 25 mg Timolol Maleate (Timoptic 0.5% Ophth Soln) 1 drop EACH EYE BID [facility] Stop: 01/22/19 08:59 Last Admin: 11/26/18 08:52 Dose: Not Given Triamcinolone Acetonide (Kenalog 0.1%) 1 appl TP BID [facility] Stop: 01/22/19 08:59 Last Admin: 11/26/18 08:52 Dose: Not Given General: Alert, Oriented x3, No acute distress (patient has no shortness of breath) HEENT: Atraumatic, PERRLA, EOMI Neck: Supple, JVD (severity 10 cm above the sternal angle) Cardiovascular: Regular rate, Normal S1, Normal S2 Lungs: Other (basilar rales) Abdomen: Bowel sounds, Soft Extremities: Edema, Other (mild pedal edema), no Clubbing, no Cyanosis Assessment/Plan - Assessment Assessment: Congestive heart failure systolic dysfunction and acute Cardiomyopathy Hypertension Secondary stage II Dementia Psychotic disorder - Plan Plan: Visit to continue Lasix 40 mg IV twice a day continue same management Nutritional Asmnt/Malnutr-PDOC - Dietary Evaluation Malnutrition Findings (Please click <Entered> for more info): Nutritional Asmnt/Malnutrition Start: 11/26/18 13: 02 Text: Status: Active Freq: Protocol: Document 11/26/18 13:02 [email or web address] (Rec: 11/26/18 13:07 [email or web address]) Nutritional Asmnt/Malnutrition Patient General Information Nutritional Screening Moderate Risk Diagnosis SOB & lower extremity swelling Pertinent Medical Hx/Surgical Hx CKD 3, HTN, dementia, insomnia , psychosis Subjective Information Pt was seen talking to herself at time of visit. PO intake is 0-25% per EMR. Per recent nurse note, pt is refusing to eat lunch, RN attempted to feed pt and was unsuccessful. Current Diet Order/ Nutrition Support cardiac Pertinent Medications lasix, heparin, KCl, seroquel Pertinent Labs 1/16 alb 3.2 11/25 BUN 39, cr 1.3, alb 3.1 11/24 BUN 43, cr 1.4 Nutritional Hx/Data Height 1.52 m Height (Calculated Centimeters) 152.4 Current Weight (lbs) 72.121 kg Weight (Calculated Kilograms) 72.1 Weight (Calculated Grams) 85322.2 [place] Body Weight 100 Body Mass Index (BMI) 31.0 Weight Status Obese GI Symptoms GI Symptoms None Last BM 11/26 Difficult in: None Skin Integrity/Comment: rash/bruise to buttocks, thighs, leg, chest, back gabriel 14 Current %PO Negligible < 25% Estimated Nutritional Goals BEE in Kcals: Adj wt of IBW Calories/Kcals/Kg 25-30 Kcals Calculated 1776-1061 Protein: Adj wt of IBW Protein g/k.8-1 Protein Calculated 41-52
[2018-11-26] MEDS ORDERED: Docusate Sodium 100 mg/10 mL UD PO PRN (16:03)
--- NOTE | 2018-11-26 16:35 | Cardiology ---
11/23/2018 PATIENT OF: Dr. De La Rosa. M-MODE ECHOCARDIOGRAM: Mitral valve, anterior leaflet of mitral valve shows decreased excursion, EF velocity. Posterior leaflet of the mitral valve shows decreased excursion. Left ventricle shows normal thickness, decreased excursion. Interventricular septum showed normal thickness, decreased excursion, ejection fraction 47%. Left atrium enlarged 4.2 cm. Aortic root shows normal dimension, normal excursion of aortic leaflets. CONCLUSION: Enlarged left ventricular cavity with decreased ejection fraction, left atrial enlargement, ejection fraction 47%. 2D ECHO: Long axis view shows enlarged left ventricular cavity with decreased ejection fraction. Left atrium enlarged. Aortic root shows normal dimension, normal excursion of aortic leaflets. Short axis view of mitral valve normal. Short axis view of aortic valve normal. Apical four chamber view shows enlarged left ventricular cavity with decreased ejection fraction, left atrial enlargement. Right ventricular cavity enlarged, right atrial enlargement. Right ventricle normal. CONCLUSION: Left atrial enlargement, right atrial enlargement, ejection fraction 47%. Doppler study shows moderate mitral regurgitation, moderate to severe tricuspid regurgitation, right ventricular systolic pressure 52 mmHg with moderate pulmonary hypertension. JOB# [id number]
[2018-11-26] MEDS ORDERED: Docusate Sodium 100 mg/10 mL UD PO SCH (17:00)
[2018-11-26] MEDS: Acetaminophen 500 MG TAB PO PRN (21:05)
--- NOTE | 2018-11-26 22:39 | Consultation ---
DATE OF CONSULTATION: 11/26/2018 INPATIENT GASTROINTESTINAL CONSULTATION REFERRING PHYSICIAN: Dr. Gen Hall. REASON FOR CONSULTATION: Dysphagia. HISTORY OF PRESENT ILLNESS: An 83-year-old female brought in because of pneumonia, congestive heart failure. The patient is not a good historian. She apparently has not been eating very well and we are asked to see her for the possibility of a feeding tube placement. There are no reports by staff of any GI bleeding or abdominal pain. No reports of any nausea, vomiting per staff. Again, the patient is not a good historian. PAST MEDICAL HISTORY: Hypertension, chronic kidney disease, dementia, and psychosis. PAST SURGICAL HISTORY: None to add recently. FAMILY HISTORY: Noncontributory. SOCIAL HISTORY: No tobacco, alcohol or IV drug usage. ALLERGIES: None. CURRENT MEDICATIONS: Tylenol, Tenormin, Pulmicort, Lasix, heparin, Ativan, Seroquel, Kenalog. REVIEW OF SYSTEMS: Unobtainable. PHYSICAL EXAMINATION: VITAL SIGNS: Temperature 97.3, breathing 18, pulse of 93, blood pressure 147/85, satting 93%. GENERAL: In no apparent distress, thin. EYES: Anicteric. Normal conjunctivae. HEENT: Normocephalic, atraumatic. Moist mucous membranes. NECK: Soft, supple. CHEST: Coarse breath sounds. CARDIOVASCULAR: Regular rate and rhythm. ABDOMEN: Soft, nontender, nondistended. SKIN: Warm and dry. EXTREMITIES: Reveal no cyanosis. PSYCHOLOGICAL: Confused. LABORATORY DATA: Show a white count of 6.3, hemoglobin 11.2, platelets of 185. INR is 1.25. IMPRESSION: An 83-year-old female with multiple medical problems, apparently not eating very well, consideration would be for feeding tube placement. If this is needed by the patient, first thing to do would be to do a swallow evaluation; if she can swallow, fine, then would encourage the oral route. On the other hand, if she fails, then would consider PEG. This would also require consent. PLAN: 1. Swallow evaluation. 2. Additional ____ to follow. 3. Defer other management to the primary team. Thank you for allowing me to participate. Please call me if any questions. JOB# [id number]
[2018-11-27] MEDS: Albuterol/Ipratropium Neb 3 ML AERS HHN SCH ×2 (07:15→13:21)
[2018-11-27] MEDS: Budesonide 0.5 Mg/2 mL Ud HHN SCH (07:16)
[2018-11-27 07:28] LABS: ALB/GLOB RATIO 1.2 (1.0-1.8); ALBUMIN 2.9 gm/dL (3.7-5.3); ALKALINE PHOSPHATASE 39 U/L (34-104); ANION GAP 14.6 (7.0-16.0); BILIRUBIN,TOTAL 1.5 mg/dL (0.3-1.0); BUN - UREA NITROGEN 38 mg/dL (7-25); CALCIUM SERUM 8.8 mg/dL (8.6-10.3); CARBON DIOXIDE 26.7 mEq/L (21.0-31.0); CHLORIDE 106 mEq/L (98-107); CREATININE - SERUM 1.5 mg/dL (0.6-1.2); GLUCOSE 104 mg/dL (70-105); POTASSIUM SERUM 3.3 mEq/L (3.5-5.1); SGOT 26 U/L (13-39); SGPT/ALT 12 U/L (7-52); SODIUM SERUM 144 mEq/L (136-145); TOTAL PROTEIN,SERUM 5.4 gm/dL (6.0-8.3)
--- NOTE | 2018-11-27 08:20 | General Progress Note ---
Subjective - Review of Systems Service Date: 11/27/18 Subjective: Patient is awake, alert, but confused at times. resting comfortably in bed. Patient afebrile. Vitals stable. on O2 NC Objective - Results Result Diagrams: 11/26/18 05:50 11/27/18 05:40 Recent Labs: Laboratory Last Values WBC 6.3 Th/cmm (4.8-10.8) 11/26/18 05:50 RBC 4.00 Mil/cmm (3.80-5.20) 11/26/18 05:50 Hgb 11.2 gm/dL (12-16) L 11/26/18 05:50 Hct 34.5 % (41.0-60) L 11/26/18 05:50 MCV 86.3 fl (81-100) 11/26/18 05:50 MCH 28.0 pg (27.0-31.0) 11/26/18 05:50 MCHC Differential 32.5 pg (28.0-36.0) 11/26/18 05:50 RDW 17.5 % (11.5-20.0) 11/26/18 05:50 Plt Count 185 Th/cmm (150-400) 11/26/18 05:50 MPV 8.7 fl 11/26/18 05:50 Add Manual Diff YES 11/26/18 05:50 Neutrophils % 56.8 % (40.0-80.0) 11/22/18 17:40 Band Neutrophils % 0 % (0-10) 11/26/18 05:50 Lymphocytes % 18.2 % (20.0-50.0) L 11/22/18 17:40 Monocytes % 20.0 % (2.0-10.0) H 11/22/18 17:40 Eosinophils % 2.1 % (0.0-5.0) 11/22/18 17:40 Basophils % 2.9 % (0.0-2.0) H 11/22/18 17:40 Neutrophils (Manual) 72 % (40-80) 11/26/18 05:50 Lymphocytes 13 % (20-50) L 11/26/18 05:50 Monocytes 15 % (2-10) H 11/26/18 05:50 Eosinophils 0 % (0-5) 11/26/18 05:50 Basophils 0 % (0-3) 11/26/18 05:50 PT 12.9 SECONDS (9.5-11.5) H 11/26/18 05:50 INR 1.25 (0.5-1.4) 11/26/18 05:50 PTT (Actin FS) 30.2 SECONDS (26.0-38.0) 11/26/18 05:50 Specimen Source Arterial 11/25/18 12:35 Sample Site Right Radial 11/25/18 12:35 pH 7.48 (7.35-7.45) H 11/25/18 12:35 pCO2 35.0 mmHg (35.0-45.0) 11/25/18 12:35 pO2 129.0 mmHg (80.0-100.0) H 11/25/18 12:35 HCO3 27.2 mEq/L (20.0-26.0) H 11/25/18 12:35 Base Excess 2.8 mEq/L (-3.0-3.0) 11/25/18 12:35 O2 Saturation 99.0 % (92.0-100.0) 11/25/18 12:35 Pedrito Test PASS 11/25/18 12:35 Inspired O2 36 11/25/18 12:35 Critical Value PW 11/25/18 12:35 Sodium 144 mEq/L (136-145) 11/27/18 05:40 Potassium 3.3 mEq/L (3.5-5.1) L 11/27/18 05:40 Chloride 106 mEq/L (98-107) 11/27/18 05:40 Carbon Dioxide 26.7 mEq/L (21.0-31.0) 11/27/18 05:40 Anion Gap 14.6 (7.0-16.0) 11/27/18 05:40 BUN 38 mg/dL (7-25) H 11/27/18 05:40 Creatinine 1.5 mg/dL (0.6-1.2) H 11/27/18 05:40 Est GFR ( Amer) TNP 11/27/18 05:40 Est GFR (Non-Af Amer) TNP 11/27/18 05:40 BUN/Creatinine Ratio 25.3 11/27/18 05:40 Glucose 104 mg/dL (70-105) 11/27/18 05:40 POC Glucose 131 MG/DL (70 - 105) H 11/22/18 16:48 Calcium 8.8 mg/dL (8.6-10.3) 11/27/18 05:40 Total Bilirubin 1.5 mg/dL (0.3-1.0) H 11/27/18 05:40 Direct Bilirubin 0.60 mg/dL (0.0-0.2) H 11/26/18 05:50 AST 26 U/L (13-39) 11/27/18 05:40 ALT 12 U/L (7-52) 11/27/18 05:40 Alkaline Phosphatase 39 U/L (34-104) 11/27/18 05:40 Troponin I 0.03 ng/mL (0.01-0.05) 11/22/18 17:40 B-Natriuretic Peptide 1320.0 pg/mL (5.0-100.0) H 11/27/18 05:40 Total Protein 5.4 gm/dL (6.0-8.3) L 11/27/18 05:40 Albumin 2.9 gm/dL (3.7-5.3) L 11/27/18 05:40 Globulin 2.5 gm/dL 11/27/18 05:40 Albumin/Globulin Ratio 1.2 (1.0-1.8) 11/27/18 05:40 Triglycerides 58 mg/dL (<150) 11/23/18 05:58 Cholesterol 72 mg/dL (<200) 11/23/18 05:58 LDL Cholesterol Direct 38 mg/dL (75-193) L 11/23/18 05:58 HDL Cholesterol 32 mg/dL (23-92) 11/23/18 05:58 TSH 0.54 uIU/ml (0.34-5.60) 11/23/18 05:58 - Physical Exam Vitals and I&O: Vital Signs Temp 97.7 F 11/27/18 04:00 Pulse 103 11/27/18 07:26 Resp 18 11/27/18 07:26 BP 122/51 11/27/18 04:00 Pulse Ox 99 11/27/18 07:26 Intake & Output 11/26/18 11/27/18 11/27/18 18:59 06:59 18:59 Intake Total 300 Balance 300 Weight (lbs) 72.121 kg Intake: Oral 300 Other: # Voids 3 # Bowel Movements 2 Stool Characteristics Formed Weight Source Bedscale Active Medications: Current Medications Acetaminophen (Tylenol Extra Strength) 500 mg PO Q6H PRN PRN Reason: Pain or Fever >101 Stop: 01/21/19 18:23 Last Admin: 11/26/18 21:05 Dose: 500 mg Albuterol Sulfate (Albuterol 2.5mg/3ml Neb Ud) 2.5 mg HHN Q4H PRN PRN Reason: sob Stop: 01/21/19 17:28 Albuterol/Ipratropium (Duoneb Neb) 3 ml HHN [id number] [facility] Stop: 01/24/19 18:59 Last Admin: 11/27/18 07:15 Dose: 3 ml Atenolol (Tenormin) 50 mg PO DAILY [facility] Stop: 01/22/19 08:59 Last Admin: 11/26/18 08:51 Dose: Not Given Budesonide (Pulmicort) 0.5 mg HHN BIDRT [facility] Stop: 01/24/19 18:59 Last Admin: 11/27/18 07:16 Dose: 0.5 mg Docusate Sodium (Colace) 200 mg PO BID PRN PRN Reason: Constipation Stop: 01/25/19 16:59 Last Admin: 11/26/18 22:56 Dose: 200 mg Furosemide (Lasix) 40 mg PO DAILY [facility] Stop: 01/22/19 08:59 Last Admin: 11/26/18 08:51 Dose: Not Given Furosemide (Lasix) 40 mg IVP BID [facility] Stop: 01/24/19 16:59 Last Admin: 11/26/18 18:11 Dose: 40 mg Heparin Sodium (Porcine) (Heparin) 5,000 units SUBQ Q12HR [facility] Stop: 01/22/19 08:59 Last Admin: 11/26/18 21:05 Dose: 5,000 units Latanoprost (Xalatan 0.005% Ophth Soln) 1 drop EACH EYE HS [facility] Stop: 01/21/19 20:59 Last Admin: 11/26/18 20:50 Dose: Not Given Lorazepam (Ativan) 0.5 mg PO Q4HR PRN; Protocol PRN Reason: Agitation Stop: 03/13/19 17:25 Last Admin: 11/25/18 22:09 Dose: 0.5 mg Lorazepam (Ativan) 0.5 mg PO Q4HR PRN; Protocol PRN Reason: Anxiety Stop: 01/21/19 18:23 Last Admin: 11/22/18 20:22 Dose: 0.5 mg Lorazepam (Ativan) 0.5 mg IVP Q4HR PRN; Protocol PRN Reason: Agitation Stop: 01/25/19 15:09 Potassium Chloride (Klor-Con) 10 meq PO DAILY [facility] Stop: 01/22/19 08:59 Last Admin: 11/26/18 08:51 Dose: Not Given Quetiapine Fumarate (Seroquel) 25 mg PO HS [facility]; Protocol Stop: 01/21/19 20:59 Last Admin: 11/26/18 21:05 Dose: 25 mg Timolol Maleate (Timoptic 0.5% Ophth Soln) 1 drop EACH EYE BID [facility] Stop: 01/22/19 08:59 Last Admin: 11/26/18 18:09 Dose: Not Given Triamcinolone Acetonide (Kenalog 0.1%) 1 appl TP BID [facility] Stop: 01/22/19 08:59 Last Admin: 11/26/18 18:10 Dose: Not Given General: Alert, Oriented x3, No acute distress (patient has no shortness of breath) HEENT: Atraumatic, PERRLA, EOMI Neck: Supple, JVD (severity 10 cm above the sternal angle) Cardiovascular: Regular rate, Normal S1, Normal S2 Lungs: Other (basilar rales) Abdomen: Bowel sounds, Soft Extremities: Edema, Other (mild pedal edema), no Clubbing, no Cyanosis Assessment/Plan - Assessment Assessment: SOB CHF CRF HTN Dementia Psychosis elevated BNP Lower extremity edema poor PO intake on mechanical soft diet constipation hypokalemia - Plan Plan: cardiology consult Lasix PO kcl PO discharge planning continue home med Nutritional Asmnt/Malnutr-PDOC - Dietary Evaluation Malnutrition Findings (Please click <Entered> for more info): Nutritional Asmnt/Malnutrition Start: 11/26/18 13: 02 Text: Status: Complete Freq: Protocol: Document 11/26/18 13:02 [email or web address] (Rec: 11/26/18 13:07 [email or web address]) Nutritional Asmnt/Malnutrition Patient General Information Nutritional Screening Moderate Risk Diagnosis SOB & lower extremity swelling Pertinent Medical Hx/Surgical Hx CKD 3, HTN, CHF, dementia, insomnia, psychosis Subjective Information Pt was seen talking to herself at time of visit. PO intake is 0-25% per EMR. Per nurse note, pt is refusing to eat lunch today, RN attempted to feed pt and was unsuccessful. Swallow eval completed today, speech therapist note recommends downgrading to mechanical soft chopped with thin liquids. Current Diet Order/ Nutrition Support cardiac Pertinent Medications lasix, heparin, KCl, seroquel Pertinent Labs 11/26 alb 3.2 11/25 BUN 39, cr 1.3, alb 3.1, glucose 88 11/24 BUN 43, cr 1.4, glucose 108 Nutritional Hx/Data Height 1.52 m Height (Calculated Centimeters) 152.4 Current Weight (lbs) 72.121 kg Weight (Calculated Kilograms) 72.1 Weight (Calculated Grams) 97073.2 [place] Body Weight 100 Body Mass Index (BMI) 31.0 Weight Status Obese GI Symptoms GI Symptoms None Last BM 11/26 Skin Integrity/Comment: rash/bruise to buttocks, thighs, leg, chest, back gabriel 14 Current %PO Negligible < 25% Estimated Nutritional Goals BEE in Kcals: Adj wt of IBW Calories/Kcals/Kg 25-30 Kcals Calculated 4551-9531 Protein: Adj wt of IBW Protein g/k.8 monitor renal labs Protein Calculated 41 Fluid: ml 9080-1854 (1ml/kcal) Nutritional Problem 1. Problem Problem inadequate energy/protein intake Etiology possible poor appetite and confusion Signs/Symptoms: PO intake 0-25% Malnutrition Alert Is there a minimum of two criteria No selected? Query Text:Check all the applicable criteria. A minimum of two criteria are recommended for diagnosis of either severe or non-severe malnutrition. Malnutrition Related to Morbid Obesity Malnutrition related to morbid obesity No Intervention/Recommendation Comments 1. Continue with cardiac diet and modify texture to mech soft chopped, nurse to assist pt with meals. 2. Add Ensure Enlive BID for extra kcal and protein. MD to consider appetite stimulant if PO intake continue < 50%. 3. Monitor PO intake, wt, labs , and skin integrity. 4. F/U as high risk in 2-3 days Expected Outcomes/Goals Expected Outcomes/Goals 1. PO intake to meet at least 75% of nutritional needs 2. Wt stability, skin to remain intact, labs to approach WNL. Reviewed by Ursula Flor RD
[2018-11-27] MEDS: Triamcinolone Acetonide 0.1% Cream 15 gm TP SCH ×3 (09:44→16:36)
[2018-11-27] MEDS: Potassium Chloride 10 mEq ER Tab PO SCH (09:47)
--- NOTE | 2018-11-27 12:21 | General Progress Note ---
Subjective - Review of Systems Service Date: 11/27/18 Subjective: Patient has S shortness of breath and less swelling in the legs Objective - Results Result Diagrams: 11/26/18 05:50 11/27/18 05:40 Recent Labs: Laboratory Last Values WBC 6.3 Th/cmm (4.8-10.8) 11/26/18 05:50 RBC 4.00 Mil/cmm (3.80-5.20) 11/26/18 05:50 Hgb 11.2 gm/dL (12-16) L 11/26/18 05:50 Hct 34.5 % (41.0-60) L 11/26/18 05:50 MCV 86.3 fl (81-100) 11/26/18 05:50 MCH 28.0 pg (27.0-31.0) 11/26/18 05:50 MCHC Differential 32.5 pg (28.0-36.0) 11/26/18 05:50 RDW 17.5 % (11.5-20.0) 11/26/18 05:50 Plt Count 185 Th/cmm (150-400) 11/26/18 05:50 MPV 8.7 fl 11/26/18 05:50 Add Manual Diff YES 11/26/18 05:50 Neutrophils % 56.8 % (40.0-80.0) 11/22/18 17:40 Band Neutrophils % 0 % (0-10) 11/26/18 05:50 Lymphocytes % 18.2 % (20.0-50.0) L 11/22/18 17:40 Monocytes % 20.0 % (2.0-10.0) H 11/22/18 17:40 Eosinophils % 2.1 % (0.0-5.0) 11/22/18 17:40 Basophils % 2.9 % (0.0-2.0) H 11/22/18 17:40 Neutrophils (Manual) 72 % (40-80) 11/26/18 05:50 Lymphocytes 13 % (20-50) L 11/26/18 05:50 Monocytes 15 % (2-10) H 11/26/18 05:50 Eosinophils 0 % (0-5) 11/26/18 05:50 Basophils 0 % (0-3) 11/26/18 05:50 PT 12.9 SECONDS (9.5-11.5) H 11/26/18 05:50 INR 1.25 (0.5-1.4) 11/26/18 05:50 PTT (Actin FS) 30.2 SECONDS (26.0-38.0) 11/26/18 05:50 Specimen Source Arterial 11/25/18 12:35 Sample Site Right Radial 11/25/18 12:35 pH 7.48 (7.35-7.45) H 11/25/18 12:35 pCO2 35.0 mmHg (35.0-45.0) 11/25/18 12:35 pO2 129.0 mmHg (80.0-100.0) H 11/25/18 12:35 HCO3 27.2 mEq/L (20.0-26.0) H 11/25/18 12:35 Base Excess 2.8 mEq/L (-3.0-3.0) 11/25/18 12:35 O2 Saturation 99.0 % (92.0-100.0) 11/25/18 12:35 Pedrito Test PASS 11/25/18 12:35 Inspired O2 36 11/25/18 12:35 Critical Value PW 11/25/18 12:35 Sodium 144 mEq/L (136-145) 11/27/18 05:40 Potassium 3.3 mEq/L (3.5-5.1) L 11/27/18 05:40 Chloride 106 mEq/L (98-107) 11/27/18 05:40 Carbon Dioxide 26.7 mEq/L (21.0-31.0) 11/27/18 05:40 Anion Gap 14.6 (7.0-16.0) 11/27/18 05:40 BUN 38 mg/dL (7-25) H 11/27/18 05:40 Creatinine 1.5 mg/dL (0.6-1.2) H 11/27/18 05:40 Est GFR ( Amer) TNP 11/27/18 05:40 Est GFR (Non-Af Amer) TN 11/27/18 05:40 BUN/Creatinine Ratio 25.3 11/27/18 05:40 Glucose 104 mg/dL (70-105) 11/27/18 05:40 POC Glucose 131 MG/DL (70 - 105) H 11/22/18 16:48 Calcium 8.8 mg/dL (8.6-10.3) 11/27/18 05:40 Total Bilirubin 1.5 mg/dL (0.3-1.0) H 11/27/18 05:40 Direct Bilirubin 0.60 mg/dL (0.0-0.2) H 11/26/18 05:50 AST 26 U/L (13-39) 11/27/18 05:40 ALT 12 U/L (7-52) 11/27/18 05:40 Alkaline Phosphatase 39 U/L (34-104) 11/27/18 05:40 Troponin I 0.03 ng/mL (0.01-0.05) 11/22/18 17:40 B-Natriuretic Peptide 1320.0 pg/mL (5.0-100.0) H 11/27/18 05:40 Total Protein 5.4 gm/dL (6.0-8.3) L 11/27/18 05:40 Albumin 2.9 gm/dL (3.7-5.3) L 11/27/18 05:40 Globulin 2.5 gm/dL 11/27/18 05:40 Albumin/Globulin Ratio 1.2 (1.0-1.8) 11/27/18 05:40 Triglycerides 58 mg/dL (<150) 11/23/18 05:58 Cholesterol 72 mg/dL (<200) 11/23/18 05:58 LDL Cholesterol Direct 38 mg/dL (75-193) L 11/23/18 05:58 HDL Cholesterol 32 mg/dL (23-92) 11/23/18 05:58 TSH 0.54 uIU/ml (0.34-5.60) 11/23/18 05:58 - Physical Exam Vitals and I&O: Vital Signs Temp 97.5 F 11/27/18 12:00 Pulse 92 11/27/18 12:00 Resp 18 11/27/18 12:00 BP 139/90 11/27/18 12:00 Pulse Ox 94 11/27/18 12:00 Intake & Output 11/26/18 11/27/18 11/27/18 18:59 06:59 18:59 Intake Total 300 Balance 300 Weight (lbs) 72.121 kg Intake: Oral 300 Other: # Voids 3 # Bowel Movements 2 Stool Characteristics Formed Weight Source Bedscale Active Medications: Current Medications Acetaminophen (Tylenol Extra Strength) 500 mg PO Q6H PRN PRN Reason: Pain or Fever >101 Stop: 01/21/19 18:23 Last Admin: 11/26/18 21:05 Dose: 500 mg Albuterol Sulfate (Albuterol 2.5mg/3ml Neb Ud) 2.5 mg HHN Q4H PRN PRN Reason: sob Stop: 01/21/19 17:28 Albuterol/Ipratropium (Duoneb Neb) 3 ml HHN [id number] [facility] Stop: 01/24/19 18:59 Last Admin: 11/27/18 07:15 Dose: 3 ml Atenolol (Tenormin) 50 mg PO DAILY [facility] Stop: 01/22/19 08:59 Last Admin: 11/27/18 09:46 Dose: 50 mg Budesonide (Pulmicort) 0.5 mg HHN BIDRT [facility] Stop: 01/24/19 18:59 Last Admin: 11/27/18 07:16 Dose: 0.5 mg Docusate Sodium (Colace) 200 mg PO BID PRN PRN Reason: Constipation Stop: 01/25/19 16:59 Last Admin: 11/26/18 22:56 Dose: 200 mg Furosemide (Lasix) 40 mg IVP BID [facility] Stop: 01/24/19 16:59 Last Admin: 11/27/18 09:46 Dose: 40 mg Heparin Sodium (Porcine) (Heparin) 5,000 units SUBQ Q12HR [facility] Stop: 01/22/19 08:59 Last Admin: 11/27/18 09:47 Dose: 5,000 units Latanoprost (Xalatan 0.005% Oph Soln) 1 drop EACH EYE HS [facility] Stop: 01/21/19 20:59 Last Admin: 11/26/18 20:50 Dose: Not Given Lorazepam (Ativan) 0.5 mg PO Q4HR PRN; Protocol PRN Reason: Agitation Stop: 01/21/19 17:25 Last Admin: 11/25/18 22:09 Dose: 0.5 mg Lorazepam (Ativan) 0.5 mg PO Q4HR PRN; Protocol PRN Reason: Anxiety Stop: 01/21/19 18:23 Last Admin: 11/22/18 20:22 Dose: 0.5 mg Lorazepam (Ativan) 0.5 mg IVP Q4HR PRN; Protocol PRN Reason: Agitation Stop: 01/25/19 15:09 Potassium Chloride (Klor-Con) 10 meq PO DAILY [facility] Stop: 01/22/19 08:59 Last Admin: 11/27/18 09:47 Dose: 10 meq Quetiapine Fumarate (Seroquel) 25 mg PO HS [facility]; Protocol Stop: 01/21/19 20:59 Last Admin: 11/26/18 21:05 Dose: 25 mg Timolol Maleate (Timoptic 0.5% Ophth Soln) 1 drop EACH EYE BID [facility] Stop: 01/22/19 08:59 Last Admin: 11/27/18 09:44 Dose: 1 drop Triamcinolone Acetonide (Kenalog 0.1%) 1 appl TP BID [facility] Stop: 01/22/19 08:59 Last Admin: 11/27/18 10:04 Dose: 1 appl General: Alert, Oriented x3, No acute distress (patient has no shortness of breath) HEENT: Atraumatic, PERRLA, EOMI Neck: Supple, JVD (severity 10 cm above the sternal angle) Cardiovascular: Regular rate, Normal S1, Normal S2 Lungs: Other (basilar rales) Abdomen: Bowel sounds, Soft Extremities: Edema, Other (mild pedal edema), no Clubbing, no Cyanosis Assessment/Plan - Assessment Assessment: Congestive heart failure systolic dysfunction and acute Cardiomyopathy Hypertension Secondary stage II Dementia Psychotic disorder - Plan Plan: Visit to continue Lasix 40 mg IV twice a day continue same management will have potassium supplement Nutritional Asmnt/Malnutr-PDOC - Dietary Evaluation Malnutrition Findings (Please click <Entered> for more info): Nutritional Asmnt/Malnutrition Start: 11/26/18 13: 02 Text: Status: Complete Freq: Protocol: Document 11/26/18 13:02 [email or web address] (Rec: 11/26/18 13:07 [email or web address]) Nutritional Asmnt/Malnutrition Patient General Information Nutritional Screening Moderate Risk Diagnosis SOB & lower extremity swelling Pertinent Medical Hx/Surgical Hx CKD 3, HTN, CHF, dementia, insomnia, psychosis Subjective Information Pt was seen talking to herself at time of visit. PO intake is 0-25% per EMR. Per nurse note, pt is refusing to eat lunch today, RN attempted to feed pt and was unsuccessful. Swallow eval completed today, speech therapist note recommends downgrading to mechanical soft chopped with thin liquids. Current Diet Order/ Nutrition Support cardiac Pertinent Medications lasix, heparin, KCl, seroquel Pertinent Labs 11/26 alb 3.2 11/25 BUN 39, cr 1.3, alb 3.1, glucose 88 11/24 BUN 43, cr 1.4, glucose 108 Nutritional Hx/Data Height 1.52 m Height (Calculated Centimeters) 152.4 Current Weight (lbs) 72.121 kg Weight (Calculated Kilograms) 72.1 Weight (Calculated Grams) 39298.2 [place] Body Weight 100 Body Mass Index (BMI) 31.0 Weight Status Obese GI Symptoms GI Symptoms None Last BM 11/26 Skin Integrity/Comment: rash/bruise to buttocks, thighs, leg, chest, back gabriel 14 Current %PO Negligible < 25% Estimated Nutritional Goals BEE in Kcals: Adj wt of IBW Calories/Kcals/Kg 25-30 Kcals Calculated 7197-4521 Protein: Adj wt of IBW Protein g/k.8 monitor renal labs Protein Calculated 41 Fluid: ml 0794-5995 (1ml/kcal) Nutritional Problem 1. Problem Problem inadequate energy/protein intake Etiology possible poor appetite and confusion Signs/Symptoms: PO intake 0-25% Malnutrition Alert Is there a minimum of two criteria No selected? Query Text:Check all the applicable criteria. A minimum of two criteria are recommended for diagnosis of either severe or non-severe malnutrition. Malnutrition Related to Morbid Obesity Malnutrition related to morbid obesity No Intervention/Recommendation Comments 1. Continue with cardiac diet and modify texture to mech soft chopped, nurse to assist pt with meals. 2. Add Ensure Enlive BID for extra kcal and protein. MD to consider appetite stimulant if PO intake continue < 50%. 3. Monitor PO intake, wt, labs , and skin integrity. 4. F/U as high risk in 2-3 days Expected Outcomes/Goals Expected Outcomes/Goals 1. PO intake to meet at least 75% of nutritional needs 2. Wt stability, skin to remain intact, labs to approach WNL. Reviewed by Ursula Flor RD
[2018-11-27] MEDS ORDERED: Potassium Chloride 20 mEq ER Tab PO ONE (12:22)
--- NOTE | 2018-11-27 13:06 | GI Progress Note ---
Subjective - Review of Systems Subjective: NO EVENTS Objective - Results Result Diagrams: 11/26/18 05:50 11/27/18 05:40 Recent Labs: Laboratory Last Values WBC 6.3 Th/cmm (4.8-10.8) 11/26/18 05:50 RBC 4.00 Mil/cmm (3.80-5.20) 11/26/18 05:50 Hgb 11.2 gm/dL (12-16) L 11/26/18 05:50 Hct 34.5 % (41.0-60) L 11/26/18 05:50 MCV 86.3 fl (81-100) 11/26/18 05:50 MCH 28.0 pg (27.0-31.0) 11/26/18 05:50 MCHC Differential 32.5 pg (28.0-36.0) 11/26/18 05:50 RDW 17.5 % (11.5-20.0) 11/26/18 05:50 Plt Count 185 Th/cmm (150-400) 11/26/18 05:50 MPV 8.7 fl 11/26/18 05:50 Add Manual Diff YES 11/26/18 05:50 Neutrophils % 56.8 % (40.0-80.0) 11/22/18 17:40 Band Neutrophils % 0 % (0-10) 11/26/18 05:50 Lymphocytes % 18.2 % (20.0-50.0) L 11/22/18 17:40 Monocytes % 20.0 % (2.0-10.0) H 11/22/18 17:40 Eosinophils % 2.1 % (0.0-5.0) 11/22/18 17:40 Basophils % 2.9 % (0.0-2.0) H 11/22/18 17:40 Neutrophils (Manual) 72 % (40-80) 11/26/18 05:50 Lymphocytes 13 % (20-50) L 11/26/18 05:50 Monocytes 15 % (2-10) H 11/26/18 05:50 Eosinophils 0 % (0-5) 11/26/18 05:50 Basophils 0 % (0-3) 11/26/18 05:50 PT 12.9 SECONDS (9.5-11.5) H 11/26/18 05:50 INR 1.25 (0.5-1.4) 11/26/18 05:50 PTT (Actin FS) 30.2 SECONDS (26.0-38.0) 11/26/18 05:50 Specimen Source Arterial 11/25/18 12:35 Sample Site Right Radial 11/25/18 12:35 pH 7.48 (7.35-7.45) H 11/25/18 12:35 pCO2 35.0 mmHg (35.0-45.0) 11/25/18 12:35 pO2 129.0 mmHg (80.0-100.0) H 11/25/18 12:35 HCO3 27.2 mEq/L (20.0-26.0) H 11/25/18 12:35 Base Excess 2.8 mEq/L (-3.0-3.0) 11/25/18 12:35 O2 Saturation 99.0 % (92.0-100.0) 11/25/18 12:35 Pedrito Test PASS 11/25/18 12:35 Inspired O2 36 11/25/18 12:35 Critical Value PW 11/25/18 12:35 Sodium 144 mEq/L (136-145) 11/27/18 05:40 Potassium 3.3 mEq/L (3.5-5.1) L 11/27/18 05:40 Chloride 106 mEq/L (98-107) 11/27/18 05:40 Carbon Dioxide 26.7 mEq/L (21.0-31.0) 11/27/18 05:40 Anion Gap 14.6 (7.0-16.0) 11/27/18 05:40 BUN 38 mg/dL (7-25) H 11/27/18 05:40 Creatinine 1.5 mg/dL (0.6-1.2) H 11/27/18 05:40 Est GFR ( Amer) TNP 11/27/18 05:40 Est GFR (Non-Af Amer) TNP 11/27/18 05:40 BUN/Creatinine Ratio 25.3 11/27/18 05:40 Glucose 104 mg/dL (70-105) 11/27/18 05:40 POC Glucose 131 MG/DL (70 - 105) H 11/22/18 16:48 Calcium 8.8 mg/dL (8.6-10.3) 11/27/18 05:40 Total Bilirubin 1.5 mg/dL (0.3-1.0) H 11/27/18 05:40 Direct Bilirubin 0.60 mg/dL (0.0-0.2) H 11/26/18 05:50 AST 26 U/L (13-39) 11/27/18 05:40 ALT 12 U/L (7-52) 11/27/18 05:40 Alkaline Phosphatase 39 U/L (34-104) 11/27/18 05:40 Troponin I 0.03 ng/mL (0.01-0.05) 11/22/18 17:40 B-Natriuretic Peptide 1320.0 pg/mL (5.0-100.0) H 11/27/18 05:40 Total Protein 5.4 gm/dL (6.0-8.3) L 11/27/18 05:40 Albumin 2.9 gm/dL (3.7-5.3) L 11/27/18 05:40 Globulin 2.5 gm/dL 11/27/18 05:40 Albumin/Globulin Ratio 1.2 (1.0-1.8) 11/27/18 05:40 Triglycerides 58 mg/dL (<150) 11/23/18 05:58 Cholesterol 72 mg/dL (<200) 11/23/18 05:58 LDL Cholesterol Direct 38 mg/dL (75-193) L 11/23/18 05:58 HDL Cholesterol 32 mg/dL (23-92) 11/23/18 05:58 TSH 0.54 uIU/ml (0.34-5.60) 11/23/18 05:58 - Physical Exam Vitals and I&O: Vital Signs Temp 97.5 F 11/27/18 12:00 Pulse 92 11/27/18 12:00 Resp 18 11/27/18 12:00 BP 139/90 11/27/18 12:00 Pulse Ox 94 11/27/18 12:00 Intake & Output 11/26/18 11/27/18 11/27/18 18:59 06:59 18:59 Intake Total 300 Balance 300 Weight (lbs) 72.121 kg Intake: Oral 300 Other: # Voids 3 # Bowel Movements 2 Stool Characteristics Formed Weight Source Bedscale Active Medications: Current Medications Acetaminophen (Tylenol Extra Strength) 500 mg PO Q6H PRN PRN Reason: Pain or Fever >101 Stop: 01/21/19 18:23 Last Admin: 11/26/18 21:05 Dose: 500 mg Albuterol Sulfate (Albuterol 2.5mg/3ml Neb Ud) 2.5 mg HHN Q4H PRN PRN Reason: sob Stop: 01/21/19 17:28 Albuterol/Ipratropium (Duoneb Neb) 3 ml HHN [id number] [facility] Stop: 01/24/19 18:59 Last Admin: 11/27/18 07:15 Dose: 3 ml Atenolol (Tenormin) 50 mg PO DAILY [facility] Stop: 01/22/19 08:59 Last Admin: 11/27/18 09:46 Dose: 50 mg Budesonide (Pulmicort) 0.5 mg HHN BIDRT [facility] Stop: 01/24/19 18:59 Last Admin: 11/27/18 07:16 Dose: 0.5 mg Docusate Sodium (Colace) 200 mg PO BID PRN PRN Reason: Constipation Stop: 01/25/19 16:59 Last Admin: 11/26/18 22:56 Dose: 200 mg Furosemide (Lasix) 40 mg IVP BID [facility] Stop: 01/24/19 16:59 Last Admin: 11/27/18 09:46 Dose: 40 mg Heparin Sodium (Porcine) (Heparin) 5,000 units SUBQ Q12HR [facility] Stop: 01/22/19 08:59 Last Admin: 11/27/18 09:47 Dose: 5,000 units Latanoprost (Xalatan 0.005% Oph Soln) 1 drop EACH EYE HS [facility] Stop: 01/21/19 20:59 Last Admin: 11/26/18 20:50 Dose: Not Given Lorazepam (Ativan) 0.5 mg PO Q4HR PRN; Protocol PRN Reason: Agitation Stop: 01/21/19 17:25 Last Admin: 11/25/18 22:09 Dose: 0.5 mg Lorazepam (Ativan) 0.5 mg PO Q4HR PRN; Protocol PRN Reason: Anxiety Stop: 01/21/19 18:23 Last Admin: 11/22/18 20:22 Dose: 0.5 mg Lorazepam (Ativan) 0.5 mg IVP Q4HR PRN; Protocol PRN Reason: Agitation Stop: 01/25/19 15:09 Potassium Chloride (Klor-Con) 10 meq PO DAILY [facility] Stop: 01/22/19 08:59 Last Admin: 11/27/18 09:47 Dose: 10 meq Quetiapine Fumarate (Seroquel) 25 mg PO HS SUMIT; Protocol Stop: 01/21/19 20:59 Last Admin: 11/26/18 21:05 Dose: 25 mg Timolol Maleate (Timoptic 0.5% Ophth Soln) 1 drop EACH EYE BID SUMIT Stop: 01/22/19 08:59 Last Admin: 11/27/18 09:44 Dose: 1 drop Triamcinolone Acetonide (Kenalog 0.1%) 1 appl TP BID [facility] Stop: 01/22/19 08:59 Last Admin: 11/27/18 10:04 Dose: 1 appl General: Alert, Oriented x3, No acute distress (patient has no shortness of breath) HEENT: Atraumatic, PERRLA, EOMI Neck: Supple, JVD (severity 10 cm above the sternal angle) Cardiovascular: Regular rate, Normal S1, Normal S2 Lungs: Other (basilar rales) Abdomen: Bowel sounds, Soft Extremities: Edema, Other (mild pedal edema), no Clubbing, no Cyanosis Assessment/Plan - Assessment Assessment: 83 YO FEMALE WITH ANOREXIA LIKELY FROM CENTRAL ETIOLOGY 1.ENCOURAGE PO 2.IF NOT SUFFICIENT THEN CONSIDER PEG
--- NOTE | 2018-11-28 02:43 | Progress Notes ---
DATE: 11/27/2018 PSYCHIATRIC PROGRESS NOTE TIME SEEN: 11:00 a.m. SUBJECTIVE: Staff was spoken to. The patient is interviewed. Mood is noted to be less irritable. Affect is appropriate. The patient is not presenting with any threats to harm self or others. No side effects to the medications are noted. The patient has been able to verbalize the concerns rather than to act out. ASSESSMENT: The patient is stabilizing. PLAN: To follow the patient up as needed. JOB# [id number]
== END 2018-11-27 18:40 | DRG 291 ==
LOC: MSI 15:58
PROVIDERS: ADMIT Family Medicine; ATTEND Family Medicine
DX: I13.0 Hypertensive heart and chronic kidney disease with heart failure and stage 1 through stage 4 chronic kidney disease, or unspecified chronic kidney disease (principal); I50.23 Acute on chronic systolic (congestive) heart failure; J18.9 Pneumonia, unspecified organism; F03.91 Unspecified dementia, unspecified severity, with behavioral disturbance; E44.1 Mild protein-calorie malnutrition; K59.00 Constipation, unspecified; I42.9 Cardiomyopathy, unspecified; N18.3 Chronic kidney disease, stage 3 (moderate); E87.6 Hypokalemia; F29 Unspecified psychosis not due to a substance or known physiological condition; Z68.30 Body mass index [BMI] 30.0-30.9, adult
CPT/HCPCS: 36415-UA; 36600-90; 71045-TC; 80048-TC; 80053-TC; 80061-TC; 80076-TC; 82803-TC; 82948-90; 83880-TC; 84443-TC; 84484-TC; 85007-TC; 85025-TC; 85610-TC; 85730-TC; 93005; 93970-TC-50; 94640; 94760; J1644; J1940; J2060; X3401; Z7610